=== PATIENT | female | born 1945 | race Hispanic/Latino ===

== ENCOUNTER 2017-08-06 06:55 | Day surgery (SDC) | payer OTHER ==
[~2017-08-06] VITALS: Ht 154.9 cm; Wt 78.8 kg
[~2017-08-06 06:55] MED LIST: ASPI-1114 PO; CHOL100040 PO; GLIP-196 PO; LEVO100T12 PO; LOSA100T29 PO; METF10004 PO; POTASSIUM; SIMV10TA6 PO; SODIUM CHLORIDE 0.9% 1000ML 1,000 ML IV ONE; XALA2.5OS OU
[2017-08-06 07:28] VITALS: BP 148/72
[2017-08-06] MEDS ORDERED: PROPOFOL 10 MG/ML 20ML VIAL IV ONE (09:35)
[2017-08-06 10:04] VITALS: BP 101/54
== END 2017-08-06 10:40 ==
LOC: ENDO 06:55 → DAH 06:55 → ENDO 10:40
PROVIDERS: ATTEND Internal Medicine Gastroenterology
DX: Z12.11 Encounter for screening for malignant neoplasm of colon (principal); D12.3 Benign neoplasm of transverse colon; D12.2 Benign neoplasm of ascending colon; D12.5 Benign neoplasm of sigmoid colon; I10 Essential (primary) hypertension; E11.9 Type 2 diabetes mellitus without complications; E03.8 Other specified hypothyroidism; M19.90 Unspecified osteoarthritis, unspecified site; H40.89 Other specified glaucoma; Z86.010 Personal history of colon polyps; Z91.041 Radiographic dye allergy status
CPT/HCPCS: 45380; 45385; 82948 ×2; 88305; 93005; A4606; J2704; J7030

== ENCOUNTER 2017-10-16 10:08 | Emergency (ER) | payer OTHER ==
[~2017-10-16 10:08] MED LIST changes: -SODIUM CHLORIDE 0.9% 1000ML 1,000 ML IV ONE
[2017-10-16 10:28] LABS: BASOPHILS % (AUTO) 0.3 % (0.0-5.0); EOSINOPHILS % (AUTO) 0.1 % (0.0-8.0); HEMATOCRIT 40.9 % (36-48); LYMPHOCYTES % (AUTO) 10.3 % (21.0-51.0); MEAN CORPUSCULAR HGB CONC 34.2 g/dL (32.0-36.0); MEAN CORPUSCULAR VOLUME 87.5 fL (79-99); MONOCYTES % (AUTO) 7.1 % (3.0-13.0); NEUTROPHILS % (AUTO) 82.2 % (40.0-77.0); PLATELET COUNT (AUTO) 242 K/uL (130-400); RED BLOOD CELL COUNT(AUTO) 4.67 MIL/uL (4.00-5.50); RED CELL DISTRIBUTION WIDTH 14.5 % (11.0-15.5)
[2017-10-16 10:37] LABS: CREATININE 0.8 mg/dL (0.5-1.5); POTASSIUM 3.2 mmol/L (3.5-5.1)
[2017-10-16 10:42] LABS: ALBUMIN 3.6 g/dL (3.5-5.0)
[2017-10-16 10:55] LABS: BILIRUBIN,TOTAL 0.8 mg/dL (0.2-1.0); TOTAL PROTEIN, SERUM 8.1 g/dL (6.0-8.3)
[2017-10-16 12:05] LABS: APPEARANCE,URINE CLEAR (CLEAR); BILIRUBIN,URINE MODERATE (NEGATIVE); COLOR,URINE YELLOW (YELLOW); GLUCOSE, URINE (UA) NEGATIVE (NEGATIVE); KETONES,URINE 5 mg/dL (NEGATIVE); LEUKOCYTE ESTERASE ,URINE TRACE (NEGATIVE); NITRATE,URINE NEGATIVE (NEGATIVE); OCCULT BLOOD,URINE SMALL (NEGATIVE); PH,URINE 5.5 (5.0-8.0); PROTEIN,URINE 100 (NEGATIVE)
[2017-10-16 12:57] LABS: BACTERIA,URINE Moderate /HPF (None Seen); MUCUS,URINE Few LPF (None Seen); RBC,URINE 0-1 /HPF (0-1); SQUAMOUS EPITHELIAL CELL,UR Rare /HPF (0-2)
[2017-10-16] MEDS ORDERED: LEVOFLOXACIN 500 MG TABLET ONE (14:29)
[2017-10-16] MEDS ORDERED: SODIUM CHLORIDE 0.9% 1000ML 1,000 ML IV ONE (14:29)
== END 2017-10-16 15:08 | disposition home or self-care (01) ==
LOC: EDH 10:08
DX: A09 Infectious gastroenteritis and colitis, unspecified (principal); E11.9 Type 2 diabetes mellitus without complications; I10 Essential (primary) hypertension; E78.5 Hyperlipidemia, unspecified
CPT/HCPCS: 36415; 80053; 81001; 82270; 83690; 85025; 87046; 87177; 87205; 99284; J7030

== ENCOUNTER 2017-10-21 07:54 | Emergency (ER) | payer OTHER ==
[2017-10-21] MEDS ORDERED: DiphenhydrAMINE HCL 50 MG/ML VIAL ONE (08:42)
[2017-10-21] MEDS ORDERED: DEXAMETHASONE SOD PHOSPHATE 4 MG/ML 1ML VIAL ONE (08:42)
== END 2017-10-21 09:15 | disposition home or self-care (01) ==
LOC: EDH 07:54
DX: R22.0 Localized swelling, mass and lump, head (principal); T37.8X5A Adverse effect of other specified systemic anti-infectives and antiparasitics, initial encounter; Z91.041 Radiographic dye allergy status; Y92.89 Other specified places as the place of occurrence of the external cause
CPT/HCPCS: 82948; 96372 ×2; 99284; J1100; J1200

== ENCOUNTER 2019-01-27 01:08 | Emergency (ER) | payer OTHER ==
[~2019-01-27 01:08] MED LIST changes: -LOSA100T29 PO; +LOSA100T58 PO; +METF-446 PO; -METF10004 PO
[2019-01-27] MEDS ORDERED: ASPIRIN 325 MG TABLET ONE (01:26)
[2019-01-27 01:28] LABS: BASOPHILS % (AUTO) 0.9 % (0.0-5.0); EOSINOPHILS % (AUTO) 3.3 % (0.0-8.0); HEMATOCRIT 37.1 % (36-48); LYMPHOCYTES % (AUTO) 30.4 % (21.0-51.0); MEAN CORPUSCULAR HEMOGLOBIN 29.4 pg (27.0-33.0); MEAN CORPUSCULAR VOLUME 86.5 fL (79-99); MONOCYTES % (AUTO) 7.9 % (3.0-13.0); NEUTROPHILS % (AUTO) 57.5 % (40.0-77.0); PLATELET COUNT (AUTO) 227 K/uL (130-400); RED BLOOD CELL COUNT(AUTO) 4.29 MIL/uL (4.00-5.50); RED CELL DISTRIBUTION WIDTH 14.7 % (11.0-15.5)
[2019-01-27 01:40] LABS: CREATININE 0.6 mg/dL (0.5-1.5); POTASSIUM 3.3 mmol/L (3.5-5.1)
[2019-01-27 01:43] LABS: INR 0.95 (0.85-1.15); PARTIAL THROMBOPLASTIN TIME 26.2 SEC (26.3-35.5)
[2019-01-27 01:45] LABS: ALBUMIN 3.8 g/dL (3.5-5.0); BILIRUBIN,TOTAL 0.3 mg/dL (0.2-1.0); TOTAL PROTEIN, SERUM 7.8 g/dL (6.0-8.3)
[2019-01-27] MEDS ORDERED: MAG HYDROX/AL HYDROX/SIMETH ES 30 ML SUSP UDCUP ONE (03:05)
[2019-01-27] MEDS ORDERED: FAMOTIDINE/PF 20 MG/2 ML VIAL IV ONE (03:06)
[2019-01-27] MEDS ORDERED: DIPHENOXYLATE HCL/ATROPINE 2.5/0.025 MG TAB PO ONE (03:06)
[2019-01-27] MEDS ORDERED: LIDOCAINE HCL 2% VISCOUS 15 ML UDCUP ONE (03:07)
== END 2019-01-27 05:08 | disposition home or self-care (01) ==
LOC: EDH 01:08
DX: K21.9 Gastro-esophageal reflux disease without esophagitis (principal); R07.9 Chest pain, unspecified; R19.7 Diarrhea, unspecified; M79.10 Myalgia, unspecified site; E11.9 Type 2 diabetes mellitus without complications; I10 Essential (primary) hypertension; E78.00 Pure hypercholesterolemia, unspecified; Z91.041 Radiographic dye allergy status
CPT/HCPCS: 36415; 71045; 80053; 82550; 84484; 85025; 85610; 85730; 87804 ×2; 93005; 96374; 99285; J3490

== ENCOUNTER 2022-09-16 10:27 | Observation (INO) | payer OTHER ==
[~2022-09-16] VITALS: Ht 157.5 cm; Wt 73.9 kg
[~2022-09-16 10:27] MED LIST changes: -LOSA100T58 PO; +LOSA100T59 PO; -SIMV10TA6 PO; +SIMV10TA97 PO
[2022-09-16 11:32] LABS: BASOPHILS % (AUTO) 0.5 % (0.0-5.0); EOSINOPHILS % (AUTO) 2.3 % (0.0-8.0); HEMATOCRIT 35.3 % (36-48); LYMPHOCYTES % (AUTO) 21.5 % (21.0-51.0); MEAN CORPUSCULAR HEMOGLOBIN 25.8 pg (27.0-33.0); MEAN CORPUSCULAR HGB CONC 31.2 g/dL (32.0-36.0); MEAN CORPUSCULAR VOLUME 82.7 fL (79-99); MONOCYTES % (AUTO) 8.1 % (3.0-13.0); NEUTROPHILS % (AUTO) 67.2 % (40.0-77.0); PLATELET COUNT (AUTO) 262 K/uL (130-400); RED BLOOD CELL COUNT(AUTO) 4.27 MIL/uL (4.00-5.50); RED CELL DISTRIBUTION WIDTH 14.8 % (11.0-15.5); WHITE BLOOD COUNT (AUTO) 5.6 K/uL (4.8-10.8)
[2022-09-16 11:40] LABS: CREATININE 0.6 mg/dL (0.5-1.5); POTASSIUM 3.9 mmol/L (3.5-5.1)
[2022-09-16 11:45] LABS: ALBUMIN 3.8 g/dL (3.5-5.0); TOTAL PROTEIN, SERUM 7.6 g/dL (6.0-8.3)
[2022-09-16 11:45] LABS: APPEARANCE,URINE CLEAR (CLEAR); BILIRUBIN,URINE NEGATIVE (NEGATIVE); COLOR,URINE COLORLESS (YELLOW); GLUCOSE, URINE (UA) NEGATIVE (NEGATIVE); KETONES,URINE NEGATIVE (NEGATIVE); LEUKOCYTE ESTERASE ,URINE NEGATIVE Leu/uL (NEGATIVE); NITRATE,URINE NEGATIVE (NEGATIVE); OCCULT BLOOD,URINE NEGATIVE (NEGATIVE); PH,URINE 6.5 (5.0-8.0); PROTEIN,URINE NEGATIVE (NEGATIVE); UROBILINOGEN,URINE 0.2 mg/dL (0.2-1.0)
[2022-09-16] MEDS ORDERED: ASPIRIN 81MG CHEW TAB PO ONE (14:30)
[2022-09-16] MEDS ORDERED: LABETALOL 20MG SYG IV PRN (15:30)
[2022-09-16] MEDS ORDERED: MORPHINE 2 MG SYG IVP PRN (15:30)
[2022-09-16] MEDS ORDERED: ONDANSETRON 4MG INJ IVP PRN (15:30)
[2022-09-16] MEDS ORDERED: ACETAMINOPHEN 325 MG TAB PO PRN (15:30)
[2022-09-16] MEDS ORDERED: CLONIDINE HCL 0.1 MG TABLET PO PRN (15:30)
[2022-09-16] MEDS ORDERED: HYDRALAZINE 20MG/ML VIAL IV PRN (15:30)
[2022-09-16] MEDS ORDERED: ASPIRIN 325MG TAB PO ONE (15:30)
[2022-09-16] MEDS ORDERED: 0.9%NACL 1000ML 1,000 ML IV SCH (15:30)
[2022-09-16] MEDS ORDERED: LACTULOSE 20 GM/30 ML UDCUP PO PRN (15:30)
[2022-09-16] MEDS ORDERED: ACETAMINOPHEN 650 MG SUPPOSITORY RC PRN (15:30)
[2022-09-16] MEDS ORDERED: INSULIN HUMULIN R 100 UNIT/ML 3ML SQ SCH (16:30)
[2022-09-16] MEDS ORDERED: METOCLOPRAMIDE 5 MG TABLET PO ONE (19:50)
[2022-09-16] MEDS ORDERED: METO5TAB87 PO (19:51)
[2022-09-16] MEDS ORDERED: METOPROLOL TARTRATE 25 MG TAB PO SCH (21:00)
[2022-09-16] MEDS ORDERED: LOSARTAN 50 MG TABLET PO SCH (21:00)
[2022-09-16] MEDS ORDERED: METOCLOPRAMIDE 5 MG TABLET PO SCH (21:00)
[2022-09-16 21:21] VITALS: BP 148/67
[2022-09-17] MEDS ORDERED: ENOXAPARIN SODIUM 40 MG/0.4 ML SYRINGE SQ SCH (09:00)
[2022-09-17] MEDS ORDERED: SIMVASTATIN 20 MG TABLET PO SCH (09:00)
[2022-09-17] MEDS ORDERED: POLYETHYLENE GLYCOL 3350 17 GM POWD.PACK PO SCH (09:00)
[2022-09-17] MEDS ORDERED: ASPIRIN 81MG CHEW TAB PO SCH (09:00)
== END 2022-09-16 23:16 | disposition home or self-care (01) ==
LOC: EDH 10:27 → EDHIP 15:30
PROVIDERS: ADMIT Internal Medicine Critical Care Medicine; ATTEND Internal Medicine Critical Care Medicine
DX: R14.0 Abdominal distension (gaseous) (principal); Z20.822 Contact with and (suspected) exposure to COVID-19; R10.13 Epigastric pain; R07.89 Other chest pain; R11.2 Nausea with vomiting, unspecified; K92.1 Melena; E11.65 Type 2 diabetes mellitus with hyperglycemia; I10 Essential (primary) hypertension; E78.5 Hyperlipidemia, unspecified; K21.9 Gastro-esophageal reflux disease without esophagitis; E03.9 Hypothyroidism, unspecified; E78.00 Pure hypercholesterolemia, unspecified; Z79.899 Other long term (current) drug therapy
CPT/HCPCS: 96360; 96361; 99285; 82550; 83874; 84484 ×3; 80053; 83690 ×2; 85025; 87880; 87804 ×2; 82948; 83605; 81003; 36415; 87635; 71045; 74176; 93005; G0378 ×8; C9803

== ENCOUNTER 2023-04-20 21:18 | Emergency (ER) | payer OTHER ==
[~2023-04-20 21:18] MED LIST changes: +METO5TAB87 PO
== END 2023-04-20 22:29 | disposition left against medical advice (07) ==
LOC: EDH 21:18
DX: R10.9 Unspecified abdominal pain (principal); Z53.21 Procedure and treatment not carried out due to patient leaving prior to being seen by health care provider

== ENCOUNTER 2024-03-30 17:47 | Emergency (ER) | payer OTHER ==
[~2024-03-30] VITALS: Ht 157.5 cm; Wt 72.6 kg
[2024-03-30] MEDS ORDERED: OXYmetazolone HCL SPRAY 15 ML BOTTLE EN STA (18:18)
[2024-03-30] MEDS ORDERED: AMOX500T2 PO (18:26)
--- NOTE | 2024-03-30 18:28 | ERN ---
ED Note History of Present Illness Stated Complaint: SINUS PRESSURE, CAT SCRATCH Chief Complaint: Congestion Time Seen by MD: 17:51 Dictation: Patient is a 78-year-old female with past medical history of hypothyroid, vertigo, hypertension, diabetes mellitus came to the ED with chief complaint of sinus pressure since 3 days. Patient has sinus pressure and decreased hearing since 3 days and also informed that she had a CT scratching on the right leg 4 days ago. Patient denies cough, headaches, shortness for breath, chest pain , sore throat, fevers, chills. She also informed about trying Flonase with no relief. Her CAT scratch on the right leg is erythematous and mildly tender. Allergies: Coded Allergies: Iodine and Iodide Containing Produc (Unverified Allergy, Unknown, 01/27/19) iodine (Unverified Allergy, Unknown, RASH, 05/29/16) Home Meds Active Scripts Amoxicillin (Amoxicillin) 500 Mg Tablet, 500 MG PO BID for 5 Days, #10 TAB Prov:MAHOGANY BOOTHE MD 03/30/24 Metoclopramide HCl (Reglan) 5 Mg Tablet, 5 MG PO ACHS for 30 Days, #120 TAB Prov:BRYANT WILLIAMSON 09/16/22 Reported Medications Aspirin (Ramy Chewable) 81 Mg Tab.chew, 81 MG PO DAILY, TAB.CHEW 08/05/17 Cholecalciferol (Vitamin D3) (Vitamin D3) 1,000 Unit Capsule, 1000 UNIT PO DAILY, CAP 08/05/17 [Potassium ] No Conflict Check, 90 MEQ DAILY 08/05/17 Metformin HCl (Metformin HCl) 1,000 Mg Tablet, 1000 MG PO BID, TAB 08/05/17 Latanoprost (Xalatan 0.005% [facility] Soln) 20 Drop/Ml Opsol, 1 DROP OU HS, DROP 08/05/17 Simvastatin (Simvastatin) 10 Mg Tablet, 10 MG PO HS, TAB 05/29/16 Levothyroxine Sodium (Levothyroxine Sodium) 100 Mcg Tablet, 100 MCG PO DAILYBKFST, TAB 05/29/16 Losartan Potassium (Losartan Potassium) 100 Mg Tablet, 100 MG PO HS, TAB 05/29/16 Glipizide (Glipizide Xl) 10 Mg Tab.er.24, 10 MG PO DAILYLUNCH 05/29/16 Past Medical History Past Medical History: Diabetes-Type II, High Cholesterol, Hypertension, Hypothyroid Surgical History: Cholecystectomy Review of System Dictation Constitutional-no chills, weight loss/gain, fever Eyes-no injury, pain, redness and discharge ENT-no injury, pain, swelling Cardiovascular no chest pain, palpitations, edema Respiratory no shortness of breath, cough, wheezing Abdomen/GI-no abdominal pain, diarrhea, constipation, vomiting, nausea Back no injury and pain Genitourinary no injury, bleeding and discharge Musculoskeletal/extremities no injury, deformity Skin no rash, discoloration Neuro-no headache, weakness, numbness, tingling, seizures, tremors Psych-no suicidal ideation, homicidal ideation, hallucinations, depression, anxiety, memory loss Initial Vital Sign VS Vital Signs Date Time Temp Pulse Resp B/P (MAP) Pulse Ox O2 Delivery O2 Flow Rate FiO2 03/30/24 17:50 97.5 78 16 186/81 98 Room Air 0 Physical Exam Dictation General-patient is awake alert and oriented Head/neck-normocephalic, atraumatic Eyes-PERRL, EOMI, vision at baseline Neck-trachea midline, supple, no nuchal rigidity Cardiovascular-RRR, normal S1/S2, no MRG is, no JVD Respiratory-no distress, wheezing, rales, rhonchi Abdomen-no tenderness, guarding, soft, nondistended Skin warm, dry, normal turgor, no rash Musculoskeletal/extremities pulses equal, no cyanosis Neuro-COA X 4, GCS 15, strength 5/5, CN 2-12 intact Psych-normal behavior, mood and affect normal ED Course ED Course Orders Procedure Category Date Status Time Cbc With Differential LAB 03/30/24 Logged 18:03 Basic Metabolic Panel LAB 03/30/24 Logged 18:03 Oxymetazolone Hcl PHA 03/30/24 Complete [place] (Afrin) 18:18 Current Medications Medications (Trade) Dose Ordered Sig/Donal Route PRN Reason Start Time Stop Time Status Last Admin Dose Admin Oxymetazoline HCl (AFrin) 1 sprays ONCE STAT EN 03/30/24 18:18 03/30/24 18:21 DC Vital Signs Date Time Temp Pulse Resp B/P (MAP) Pulse Ox O2 Delivery O2 Flow Rate FiO2 03/30/24 17:50 97.5 78 16 186/81 98 Room Air 0 Medical Decision Making MDM INITIAL IMPRESSION Initial history and physical concerning for acute sinusitis Contributing medical problems: None I have reviewed the triage nursing notes and vital signs. Initial plan: Laboratory evaluation . DATA REVIEW I have reviewed additional NN, repeat VS, and monitoring where indicated. Heart rate, blood pressure, and O2 saturation are acceptable. ED COURSE Interventions: Labs and decongestant Reassessment: DISPOSITION Final diagnostic impression: Acute sinusitis I discussed my findings, clinical impression and treatment recommendations with the patient. My final plan for disposition was made based upon -mild risk of complications and potential morbidity of the patient's condition. -Discussion with the patient regarding management options. Patient will be discharged with medication DX & DISP Disposition: Discharge Departure Impression: Primary Impression: Acute frontal sinusitis Additional Impression: Cat scratch Condition: Stable Scripts Amoxicillin (Amoxicillin) 500 Mg Tablet 500 MG PO BID for 5 Days, #10 TAB Prov: MAHOGANY BOOTHE MD 03/30/24 Referrals: VIVIAN SHETH MD (PCP) Time of Disposition: 18:35 I have reviewed I have reviewed the case I have examined patient MAHOGANY BOOTHE MD Mar 30, 2024 18:28
[2024-03-30 18:43] LABS: BASOPHILS # (AUTO) 0.03 K/uL (0.00-0.20); BASOPHILS % (AUTO) 0.4 % (0.0-5.0); EOSINOPHILS # (AUTO) 0.15 K/uL (0.00-0.70); EOSINOPHILS % (AUTO) 2.1 % (0.0-8.0); HEMATOCRIT 39.6 % (36-48); IMMATURE GRANULOCYTE ABSOLUTE 0.02 K/uL (0-1); LYMPHOCYTES # (AUTO) 2.1 K/uL (1.0-4.8); MEAN CORPUSCULAR HEMOGLOBIN 27.2 pg (27.0-33.0); MEAN CORPUSCULAR HGB CONC 31.8 g/dL (32.0-36.0); MEAN CORPUSCULAR VOLUME 85.3 fL (79-99); MONOCYTES # (AUTO) 0.5 K/uL (0.1-1.0); MONOCYTES % (AUTO) 7.4 % (3.0-13.0); NEUTROPHILS # (AUTO) 4.4 K/uL (1.8-7.7); NEUTROPHILS % (AUTO) 60.8 % (40.0-77.0); PLATELET COUNT (AUTO) 244 K/uL (130-400); RED BLOOD CELL COUNT(AUTO) 4.64 MIL/uL (4.00-5.50); RED CELL DISTRIBUTION WIDTH 14.4 % (11.0-15.5); WHITE BLOOD COUNT (AUTO) 7.3 K/uL (4.8-10.8)
[2024-03-30 18:58] VITALS: BP 180/78; PULSE 75; RESP 16; TEMP 98.1; O2SAT 98
[2024-03-30 19:01] LABS: CREATININE 0.5 mg/dL (0.5-1.0); POTASSIUM 3.6 mmol/L (3.5-5.1)
== END 2024-03-30 19:04 | disposition home or self-care (01) ==
LOC: EDH 17:47
DX: J01.10 Acute frontal sinusitis, unspecified (principal); E03.9 Hypothyroidism, unspecified; E11.9 Type 2 diabetes mellitus without complications; E78.00 Pure hypercholesterolemia, unspecified; I10 Essential (primary) hypertension; Z79.82 Long term (current) use of aspirin; Z79.84 Long term (current) use of oral hypoglycemic drugs; Z90.49 Acquired absence of other specified parts of digestive tract; Z88.8 Allergy status to other drugs, medicaments and biological substances; Z91.041 Radiographic dye allergy status; W55.03XA Scratched by cat, initial encounter; Y93.89 Activity, other specified; Y92.89 Other specified places as the place of occurrence of the external cause; Y99.8 Other external cause status
CPT/HCPCS: 36415; 80048; 85025; 99283

== ENCOUNTER 2024-04-03 02:20 | Emergency (ER) | payer OTHER ==
[~2024-04-03] VITALS: Ht 157.5 cm; Wt 74.8 kg
[~2024-04-03 02:20] MED LIST changes: +AMOX500T2 PO
[2024-04-03 03:06] LABS: BASOPHILS # (AUTO) 0.05 K/uL (0.00-0.20); BASOPHILS % (AUTO) 0.5 % (0.0-5.0); EOSINOPHILS # (AUTO) 0.15 K/uL (0.00-0.70); EOSINOPHILS % (AUTO) 1.6 % (0.0-8.0); HEMATOCRIT 37.7 % (36-48); IMMATURE GRANULOCYTE ABSOLUTE 0.03 K/uL (0-1); LYMPHOCYTES # (AUTO) 1.2 K/uL (1.0-4.8); LYMPHOCYTES % (AUTO) 12.9 % (21.0-51.0); MEAN CORPUSCULAR HEMOGLOBIN 27.1 pg (27.0-33.0); MEAN CORPUSCULAR HGB CONC 32.1 g/dL (32.0-36.0); MEAN CORPUSCULAR VOLUME 84.5 fL (79-99); MONOCYTES # (AUTO) 0.7 K/uL (0.1-1.0); MONOCYTES % (AUTO) 7.6 % (3.0-13.0); NEUTROPHILS # (AUTO) 7.4 K/uL (1.8-7.7); NEUTROPHILS % (AUTO) 77.1 % (40.0-77.0); PLATELET COUNT (AUTO) 214 K/uL (130-400); RED BLOOD CELL COUNT(AUTO) 4.46 MIL/uL (4.00-5.50); RED CELL DISTRIBUTION WIDTH 14.4 % (11.0-15.5); WHITE BLOOD COUNT (AUTO) 9.5 K/uL (4.8-10.8)
[2024-04-03 03:13] LABS: CREATININE 0.6 mg/dL (0.5-1.0); POTASSIUM 4.3 mmol/L (3.5-5.1)
[2024-04-03 03:28] LABS: APPEARANCE,URINE CLEAR (CLEAR); BILIRUBIN,URINE NEGATIVE (NEGATIVE); COLOR,URINE COLORLESS (YELLOW); GLUCOSE, URINE (UA) NEGATIVE (NEGATIVE); KETONES,URINE NEGATIVE (NEGATIVE); LEUKOCYTE ESTERASE ,URINE 250 Leu/uL (NEGATIVE); NITRATE,URINE NEGATIVE (NEGATIVE); OCCULT BLOOD,URINE NEGATIVE (NEGATIVE); PROTEIN,URINE NEGATIVE (NEGATIVE); UROBILINOGEN,URINE 0.2 mg/dL (0.2-1.0)
[2024-04-03 03:30] LABS: ADD UA MICROSCOPIC YES
[2024-04-03 03:32] LABS: SQUAMOUS EPITHELIAL CELL,UR FEW /HPF (0-2)
[2024-04-03] MEDS ORDERED: PRED20TA3 PO (03:35)
--- NOTE | 2024-04-03 03:35 | ERN ---
ED Note History of Present Illness Stated Complaint: DRY MOUTH, GBW, COUGH Chief Complaint: Multiple Complaints Time Seen by MD: 02:23 Dictation: This is a 78-year-old female who presented to the emergency room with complaints of dry mouth cough and generalized weakness for the past 2 weeks. Apparently she was diagnosed with a sinus infection and has been taking Augmentin. She also reported that her blood pressure was high last night on 2 occasions at 165/82 and 175/95. She denied any history of fevers chills rigors. No history of any epistaxis. She does admit to postnasal drip. No acute headaches or sinus tenderness reported. 97.5 pulse 91 respirations 18 blood pressure 164/85 with a pulse oximetry of 98% on room air Chronic medical problems include diabetes mellitus type 2, hypercholesterolemia, hypertension, hypothyroidism Allergies: Coded Allergies: Iodine and Iodide Containing Produc (Unverified Allergy, Unknown, 01/27/19) iodine (Unverified Allergy, Unknown, RASH, 05/29/16) Home Meds Active Scripts Prednisone (Prednisone) 20 Mg Tablet, 1 TAB PO AD for 6 Days, #14 TAB 0 Refills TAKE 1 TAB BY MOUTH THREE TIMES PER DAY X3 DAYS, THEN TAKE 1 TAB BY MOUTH TWICE A DAY X2 DAYS, THEN TAKE 1 TAB BY MOUTH ONCE A DAY X1 DAY. Prov:MARY WESLEY MD 04/03/24 Amoxicillin (Amoxicillin) 500 Mg Tablet, 500 MG PO BID for 5 Days, #10 TAB Prov:MAHOGANY BOOTHE MD 03/30/24 Metoclopramide HCl (Reglan) 5 Mg Tablet, 5 MG PO ACHS for 30 Days, #120 TAB Prov:BRYANT WILLIAMSON 09/16/22 Reported Medications Aspirin (Ramy Chewable) 81 Mg Tab.chew, 81 MG PO DAILY, TAB.CHEW 08/05/17 Cholecalciferol (Vitamin D3) (Vitamin D3) 1,000 Unit Capsule, 1000 UNIT PO DAILY, CAP 08/05/17 [Potassium ] No Conflict Check, 90 MEQ DAILY 08/05/17 Metformin HCl (Metformin HCl) 1,000 Mg Tablet, 1000 MG PO BID, TAB 08/05/17 Latanoprost (Xalatan 0.005% [facility] Soln) 20 Drop/Ml Opsol, 1 DROP OU HS, DROP 08/05/17 Simvastatin (Simvastatin) 10 Mg Tablet, 10 MG PO HS, TAB 05/29/16 Levothyroxine Sodium (Levothyroxine Sodium) 100 Mcg Tablet, 100 MCG PO DAILYBKFST, TAB 05/29/16 Losartan Potassium (Losartan Potassium) 100 Mg Tablet, 100 MG PO HS, TAB 05/29/16 Glipizide (Glipizide Xl) 10 Mg Tab.er.24, 10 MG PO DAILYLUNCH 05/29/16 Past Medical History Past Medical History: Diabetes-Type II, High Cholesterol, Hypertension, Hypothyroid Surgical History: Cholecystectomy Family History: Negative Social History: Negative History: Not Applicable RN Note Reviewed/Agreed w/PFSH: Yes Review of System Dictation Constitutional: Negative for fever,chills, and weight loss Eyes: Negative for injury, pain,redness, and discharge ENT: Negative for injury,pain or swelling Cardiovascular: Negative for chest pain, palpitations, and edema Respiratory: Negative for shortness of breath, cough, and wheezing, Abdomen/GI: Negative for abdominal pain, nausea, vomiting, diarrhea, and constipation Back: Negative for injury and pain : Negative for injury, bleeding and discharge MS/Extremity: Negative for injury and deformity Skin: Negative for rash, and discoloration Neuro: Negative for headache, weakness, numbness, tingling, and seizure Psych: Negative for suicide ideation, homicidal ideation, and hallucinations Initial Vital Sign VS Vital Signs Date Time Temp Pulse Resp B/P (MAP) Pulse Ox O2 Delivery O2 Flow Rate FiO2 04/03/24 02:22 97.5 91 18 164/85 98 Room Air 04/03/24 04:20 0 21 Physical Exam Dictation General: awake, alert, NAD Head/Face: Normocephalic, atraumatic Eyes: PERRL, EOMI, vision at baseline ENT: oral cavity clear, TMs clear, no signs of infection Neck: Trachea midline, supple, no nuchal rigidity Cardiovascular: RRR, normal S1/S2, No MRGs, no JVD Respiratory: CTAB, no respiratory distress, No rales or wheezes Abdomen: Soft, non-tender, non-distended, normal bowel sounds, no guarding or rebound. Skin: Warm, dry, normal turgor, no rash MS/Extremity: Pulses equal, no cyanosis, neurovascular intact, FROM Neuro: COAx4, GCS 15, strength 5/5, CN 2-12 intact, normal cerebellar exam, normal gait, Psych: Normal behavior, mood, and affect normal Extremities-trace edema without any palpable cords, Homans sign is negative Results (Laboratory/Radiology) Laboratory/Radiology Laboratory Tests Test 04/03/24 02:58 04/03/24 03:19 White Blood Count 9.5 K/uL (4.8-10.8) Red Blood Count 4.46 MIL/uL (4.00-5.50) Hemoglobin 12.1 g/dL (12.0-16.0) Hematocrit 37.7 % (36-48) Mean Corpuscular Volume 84.5 fL (79-99) Mean Corpuscular Hemoglobin 27.1 pg (27.0-33.0) Mean Corpuscular Hemoglobin Concent 32.1 g/dL (32.0-36.0) Red Cell Distribution Width 14.4 % (11.0-15.5) Platelet Count 214 K/uL (130-400) Mean Platelet Volume 10.9 fL (7.5-10.5) H Immature Granulocyte % (Auto) 0.3 % (0-1) Neutrophils (%) (Auto) 77.1 % (40.0-77.0) H Lymphocytes (%) (Auto) 12.9 % (21.0-51.0) L Monocytes (%) (Auto) 7.6 % (3.0-13.0) Eosinophils (%) (Auto) 1.6 % (0.0-8.0) Basophils (%) (Auto) 0.5 % (0.0-5.0) Neutrophils # (Auto) 7.4 K/uL (1.8-7.7) Lymphocytes # (Auto) 1.2 K/uL (1.0-4.8) Monocytes # (Auto) 0.7 K/uL (0.1-1.0) Eosinophils # (Auto) 0.15 K/uL (0.00-0.70) Basophils # (Auto) 0.05 K/uL (0.00-0.20) Absolute Immature Granulocyte (auto 0.03 K/uL (0-1) Nucleated Red Blood Cells 0.0 % (0.0-0.19) Sodium Level 140 mmol/L (136-145) Potassium Level 4.3 mmol/L (3.5-5.1) Chloride Level 103 mmol/L (101-111) Carbon Dioxide Level 29 mmol/L (21-32) Blood Urea Nitrogen 10 mg/dL (7-18) Creatinine 0.6 mg/dL (0.5-1.0) Glomerular Filtration Rate Calc 93 mL/min (>90) Random Glucose 169 mg/dL (70-105) H Total Calcium 8.9 mg/dL (8.5-10.1) Urine Color COLORLESS (YELLOW) Urine Appearance CLEAR (CLEAR) Urine pH 7.0 (5.0-8.0) Urine Specific [place] 1.010 (1.001-1.031) Urine Protein NEGATIVE mg/dL (NEGATIVE) Urine Glucose (UA) NEGATIVE mg/dL (NEGATIVE) Urine Ketones NEGATIVE mg/dL (NEGATIVE) Urine Occult Blood NEGATIVE (NEGATIVE) Urine Nitrate NEGATIVE (NEGATIVE) Urine Bilirubin NEGATIVE mg/dL (NEGATIVE) Urine Urobilinogen 0.2 mg/dL (0.2-1.0) Urine Leukocyte Esterase 250 [place]/uL (NEGATIVE) H Urine RBC 2-5 /HPF (0-1) H Urine WBC 2-5 /HPF (0-1) H Urine Squamous Epithelial Cells FEW /HPF (0-2) Urine Bacteria None /HPF (None Seen) Labs Reviewed?: Yes ED Course ED Course Orders Procedure Category Date Status Time Cbc With Differential LAB 04/03/24 Complete 02:24 Basic Metabolic Panel LAB 04/03/24 Complete 02:24 Urinalysis Profile LAB 04/03/24 Complete 02:24 Culture Urine ALEXANDER 04/03/24 In Process 03:30 Sodium Chloride (Baby PHA 04/03/24 Complete [place] Saline) 04:00 Prednisone 20mg Tab PHA 04/03/24 Complete (Deltasone/Orasone 2 04:00 Ipratropium/Albuterol PHA 04/03/24 Complete Neb (Duoneb) 04:00 Hydralazine 20mg Inj PHA 04/03/24 Complete (Apresoline 20mg In 04:30 Chest 1vw RAD 04/03/24 Taken 04:17 Current Medications Medications (Trade) Dose Ordered Sig/Donal Route PRN Reason Start Time Stop Time Status Last Admin Dose Admin Albuterol (DUOneb) 1 UDVIAL ONCE ONCE IH 04/03/24 04:00 04/03/24 04:01 DC 04/03/24 04:21 Hydralazine HCl (APRESOLine 20MG INJ) 10 mg ONCE ONCE IV 04/03/24 04:30 04/03/24 04:31 DC Prednisone (deltaSONE/ oraSONE 20MG TAB) 20 mg ONCE ONCE PO 04/03/24 04:00 04/03/24 04:01 DC 04/03/24 03:47 Sodium Chloride (Baby Bertrand Saline) 4 drop ONCE ONCE NS 04/03/24 04:00 04/03/24 04:01 DC 04/03/24 03:47 Vital Signs Date Time Temp Pulse Resp B/P (MAP) Pulse Ox O2 Delivery O2 Flow Rate FiO2 04/03/24 04:21 74 18 04/03/24 04:20 97.9 74 18 151/86 99 Room Air* 0 21 04/03/24 02:22 97.5 91 18 164/85 98 Room Air We will perform diagnostic labs, advanced imaging and administer medications according to the patient's complaint. Once the results are available, will review and personally interpreted the labs to rule out any acute life- threatening emergency the trach require immediate intervention and treatment. I will then re-evaluate the patient after treatment and diagnostic exams have return to determine whether the patient requires any further testing, can safely be discharged home or need further admission to hospital for additional treatment and evaluation. Labs reviewed CBC within normal limits BNP 7 shows a bicarb of 29 but otherwise overall with a normal limits. Reviewed the chest x-ray-no obvious infiltrate was seen. Radiology report is pending at this time Patient responded very well to prednisone and DuoNeb. Also instructed her on saline nasal drops 5:04 a.m.-feeling much better wants to be discharged to home Medical Decision Making MDM MDM: Differential diagnosis: Rationale: Tests considered and ordered secondary to shared decision making include: Previous outside records reviewed: Old ER visits. Risk of complication and/or morbidity or mortality of patient management: None Medications-Per medication reconciliation Need for hospitalization: Patient does not meet criteria for hospitalization. Need for emergency major/minor surgery: No There are no social concerns with this patient. Prescription drug management Prescriptions will include symptomatic care Patient's prior external medical records from other ER visits were reviewed by me as indicated. Prior testing and results from previous visits were reviewed. Prior tests were taken into account with medical decision making and resource utilization, independent historian/historians were used to obtain complete medical history. I independently interpreted the test that were performed, results were reviewed by me and considered findings on radiology if ordered. Medical management and examination interpretation discussions were had by me with other qualified healthcare professionals as indicated for the patient's care. Problem List Problem List: (1) Acute frontal sinusitis (2) DM type 2 (diabetes mellitus, type 2) (3) HTN (hypertension) DX & DISP Disposition: Discharge Departure Impression: Primary Impression: Acute frontal sinusitis Additional Impressions: DM type 2 (diabetes mellitus, type 2), HTN (hypertension) Condition: Stable Scripts Albuterol Sulfate (Ventolin Hfa/Proventil Hfa/Proair Hfa) 90 Mcg Puff 2 PUFF IH Q4H for WHEEZING, #1 INHALER 0 Refills Prov: MARY WESLEY MD 04/03/24 Prednisone (Prednisone) 20 Mg Tablet 1 TAB PO AD for 6 Days, #14 TAB 0 Refills TAKE 1 TAB BY MOUTH THREE TIMES PER DAY X3 DAYS, THEN TAKE 1 TAB BY MOUTH TWICE A DAY X2 DAYS, THEN TAKE 1 TAB BY MOUTH ONCE A DAY X1 DAY. Prov: MARY WESLEY MD 04/03/24 Additional Instructions: Patient and the caregiver have been informed of all the diagnostic tests and the imaging conducted during the today's visit to the emergency room and has verbalized understanding of the results I have personally reviewed and interpreted all diagnostic exams performed here in the ER today as well as the vital signs documented by the nursing staff. The patient is now being discharged to home and should follow up with the primary care physician or the specialist as directed by the ER staff. Follow-up with primary care provider in 1 to 2 days. Take medications as directed here in the emergency room. Okay to continue home medications unless otherwise discussed during your visit in the emergency room today. Return to your nearest emergency room if symptoms worsen or if there is no improvement. Call 911 if you need immediate assistance. Take Tylenol or Motrin [id number] as needed and if no contraindications are present. Increase oral hydration. A wound culture or urine culture was ordered here in the emergency room department please follow-up with primary care provider and advise them to get repeat ports from our facility. If you had any Deon wrap/splints that were applied here, please do not remove them until you see your primary care or specialty. Saline Nasal [place] was given to her Referrals: GERRI MENDEZ MD (PCP) MARY WESLEY MD Apr 03, 2024 03:35
[2024-04-03] MEDS: predniSONE 20 MG TABLET PO ONE (03:47)
[2024-04-03] MEDS: SODIUM CHLORIDE 30 ML DROPS NS ONE (03:47)
[2024-04-03 04:20] VITALS: BP 151/86; TEMP 97.8; O2SAT 99
[2024-04-03 04:21] VITALS: PULSE 74; RESP 18
[2024-04-03] MEDS: IpraTROPium/alBUTERol SULFATE 3 ML SOLUTION IH ONE (04:21)
[2024-04-03] MEDS ORDERED: hydrALAZine 20MG/ML VIAL IV ONE (04:30)
[2024-04-03] MEDS ORDERED: ALBUHFA IH (05:02)
--- NOTE | 2024-04-03 08:32 | HMCIMG ---
Exam Type: CHEST 1VW Clinical Information: severe cough , sinusitis Comparison: None Findings: The lungs are clear of infiltrates. The heart is normal in size. The bony and soft tissue structures of the chest are unremarkable. Impression: Clear lungs.
[2024-04-04] MEDS ORDERED: hydrochlorothiazide (23:33)
[2024-04-04] MEDS ORDERED: CETI10TA87 PO (23:33)
[2024-04-04] MEDS ORDERED: SIMV40TA59 PO (23:33)
[2024-04-04] MEDS ORDERED: leg cramps PO (23:33)
[2024-04-04] MEDS ORDERED: VALS40TA11 PO (23:33)
[2024-04-06] MEDS ORDERED: OSEL75 PO (10:58)
[2024-04-06] MEDS ORDERED: CEFD300C3 PO (10:58)
== END 2024-04-03 05:12 | disposition home or self-care (01) ==
LOC: EDH 02:20
DX: J01.10 Acute frontal sinusitis, unspecified (principal); E11.9 Type 2 diabetes mellitus without complications; I10 Essential (primary) hypertension; E03.9 Hypothyroidism, unspecified; E78.00 Pure hypercholesterolemia, unspecified; Z79.82 Long term (current) use of aspirin; Z79.84 Long term (current) use of oral hypoglycemic drugs; Z88.8 Allergy status to other drugs, medicaments and biological substances; Z90.49 Acquired absence of other specified parts of digestive tract; Z91.041 Radiographic dye allergy status
CPT/HCPCS: 36415; 71045; 80048; 81001; 85025; 87086; 87186; 94640; 99284